=== PATIENT | male | born 2000 | race African-American/Black ===

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

== ENCOUNTER 2023-02-23 22:01 | Emergency (ER) | payer MEDICAID, SELFPAY ==
[2023-02-23 22:02] VITALS: BP 142/90; PULSE 89; RESP 18; TEMP 36.8; O2SAT 98; BMI 19.0
--- NOTE | 2023-02-23 22:28 | EX.ED.UPPERE ---
HPI History of Present Illness Chief Complaint: Upper Extremity Injury Narrative Narrative: 22-year-old male presenting with left shoulder pain. Its in the lateral aspect of his left deltoid. Patient denies any direct trauma he states it hurts worse with movement. Is better with rest. Patient states he started a new job where he has lots of lifting and he believes this is what exacerbated the pain. PFSH PFSH Home Medications acetaminophen 325 mg tablet 2 tab PO PRN PRN Pain 02/23/19 [History Last Taken Unknown] cyclobenzaprine 10 mg tablet 10 mg PO TID PRN Muscle Spasm #20 TABLETS 02/23/23 [Rx Last Taken Unknown] naproxen 500 mg tablet (Naprosyn) 500 mg PO BID PRN pain #20 tabs 02/23/23 [Rx Last Taken Unknown] Allergy/AdvReac Type Severity Reaction Status Date / Time No Known Allergies Allergy Verified 02/23/23 22:04 Family History Other Diabetes Hypertension Social History Smoking Status: Never smoker ROS ROS ED Constitutional Constitutional ED: Denies chills, fever(s) or sweats Eyes Eyes: Denies blurry vision or change in vision ENT ENT ED: Denies ear pain or sore throat Cardiovascular Cardiovascular: Denies chest pain, palpitations or racing heartbeat Respiratory/Chest Respiratory/Chest: Denies cough, dyspnea or sputum Gastrointestinal Gastrointestinal: Denies abdominal pain, constipation, diarrhea, nausea or vomiting Genitourinary Genitourinary ED: Denies dysuria, hematuria or urinary frequency Musculoskeletal Musculoskeletal: Reports other Details: Left shoulder pain ; Denies arthralgias, myalgias or neck pain Integumentary Denies abscess, Abrasions or rash Neurologic Neurologic: Denies headache(s), paresthesias or weakness Psychiatric Psychiatric: Denies anxiety, depression, suicidal ideation or suicidal thoughts Endocrine Endocrinology: Denies polydipsia or polyuria EXAM Physical Exam Const Vital Signs: 02/23/23 22:02 Temperature 98.3 F Temperature Source Temporal Pulse Rate 89 Respiratory Rate 18 Blood Pressure 142/90 H Blood Pressure Mean 107 Pulse Ox 98 Oxygen Delivery Method Room Air Positive well nourished General Appearance ED: diaphoretic HEENT Reports moist mucous membranes Eyes PERRL and EOMs intact bilaterally Chest Wall inspection of chest normal Resp normal respiratory effort Effort and Inspection: Negative for pain with movement Cardio regular rate and regular rhythm Back/Spine Cervical Spine: Negative for cervical spine tenderness Thoracic Spine / Upper Back: Negative for thoracic spinal tenderness Extremity Extremity Narrative: Tenderness to palpation left deltoid. No limitation in range of motion in flexion, extension, abduction, abduction. No bruising, cellulitic change. Neuro oriented x3 and CN's II-XII intact bilaterally Sensorium / Orientation: alert Motor Exam: strength 5/5 throughout Skin General Skin Exam: petechiae MDM MDM MDM Narrative Medical decision making narrative: 22-year-old male presenting with left shoulder pain. This is isolated to the deltoid. I do not believe he needs any imaging. Patient will be given Naprosyn and Flexeril for home. Work restrictions were given. Patient counseled on rest, ice, NSAIDs. Return precautions were discussed. Impression: 1. Left deltoid strain Discharge Plan Triage Chief Complaint: Upper Extremity Injury ED Provider: Hitesh Rhoades Dx/Rx/DC Orders Instructions: ED Shoulder Sprain Prescriptions: New naproxen [Naprosyn] 500 mg tablet 500 mg PO BID PRN (Reason: pain) Qty: 20 0RF cyclobenzaprine 10 mg tablet 10 mg PO TID PRN (Reason: Muscle Spasm) Qty: 20 0RF No Action acetaminophen 325 MG tablet 2 tab PO PRN PRN (Reason: Pain) Stand Alone Forms: ED Work / School Excuse Primary Care Provider: Sarah Young Referrals: Sarah Young MD [Primary Care Provider] - Disposition Disposition: Home, Self Care
--- NOTE | 2023-02-23 22:58 | EX.ED.UPPERE ---
HPI History of Present Illness Chief Complaint: Upper Extremity Injury PFSH PFSH Home Medications acetaminophen 325 mg tablet 2 tab PO PRN PRN Pain 02/23/19 [History Last Taken Unknown] cyclobenzaprine 10 mg tablet 10 mg PO TID PRN Muscle Spasm #20 TABLETS 02/23/23 [Rx Last Taken Unknown] naproxen 500 mg tablet (Naprosyn) 500 mg PO BID PRN pain #20 tabs 02/23/23 [Rx Last Taken Unknown] Allergy/AdvReac Type Severity Reaction Status Date / Time No Known Allergies Allergy Verified 02/23/23 22:04 Family History Other Diabetes Hypertension Social History Smoking Status: Never smoker EXAM Physical Exam Const Vital Signs: 02/23/23 22:02 Temperature 98.3 F Temperature Source Temporal Pulse Rate 89 Respiratory Rate 18 Blood Pressure 142/90 H Blood Pressure Mean 107 Pulse Ox 98 Oxygen Delivery Method Room Air MDM MDM MDM Narrative Medical decision making narrative: Patient with muscle strain to the left deltoid. I do not believe any imaging will help. Patient will be prescribed muscle relaxers and anti-inflammatories. Work restrictions were discussed. Return precautions discussed. Impression: 1. Left shoulder strain Discharge Plan Triage Chief Complaint: Upper Extremity Injury ED Provider: Hitesh Rhoades Dx/Rx/DC Orders Instructions: ED Shoulder Sprain Prescriptions: New naproxen [Naprosyn] 500 mg tablet 500 mg PO BID PRN (Reason: pain) Qty: 20 0RF cyclobenzaprine 10 mg tablet 10 mg PO TID PRN (Reason: Muscle Spasm) Qty: 20 0RF No Action acetaminophen 325 MG tablet 2 tab PO PRN PRN (Reason: Pain) Stand Alone Forms: ED Work / School Excuse Primary Care Provider: Sarah Young Referrals: Sarah Young MD [Primary Care Provider] - Disposition Disposition: Home, Self Care
== END 2023-02-23 23:01 | disposition home or self-care (01) ==
LOC: ED 22:35
PROVIDERS: Emergency Provider Student in an Organized Health Care Education/Training Program; PCP Pediatrics; Visit Provider Student in an Organized Health Care Education/Training Program
DX: S46.912A Strain of unspecified muscle, fascia and tendon at shoulder and upper arm level, left arm, initial encounter (principal); X58.XXXA Exposure to other specified factors, initial encounter
CPT/HCPCS: 99282

== ENCOUNTER 2024-06-24 05:26 | Emergency (ER) | payer MEDICAID, SELFPAY ==
[2024-06-24 05:27] VITALS: BP 141/104; PULSE 98; RESP 16; TEMP 36.6; O2SAT 98; BMI 17.4
[2024-06-24 06:27] VITALS: PULSE 69; RESP 17; O2SAT 98
[2024-06-24 06:27] LABS: Absolute Lymphocyte Count 3.18 X10^3/uL (0.83-4.51); Absolute Neutrophil Count 7.2 X10^3/uL (2.0-7.7); Basophil# 0.04 X10^3/uL; Basophil% 0.4 % (0-1); Eosinophil# 0.06 X10^3/uL; Eosinophils% 0.5 % (0-5); Hematocrit 44.8 % (40-54); Hemoglobin 15.6 g/dL (13.0-16.5); Lymphocyte # 3.18 X10^3/ul (0.83-4.51); Lymphocyte % 28.7 % (19-41); Mean Corp Hgb Conc 34.8 g/dL (32-36); Mean Corpuscular Hgb 29.2 pg (27.0-32.0); Mean Corpuscular Volume 83.7 fL (80-94); Mean Platelet Vol. 8.7 fl (6.2-12.0); Monocyte# 0.49 X10^3/uL; Monocyte% 4.4 % (0-10); NRBC Flagged by Analyzer 0 % (0-5); Neutrophil # 7.23 X10^3/uL (2.7-7.7); Neutrophil % 65.3 % (47-70); Platelet Count 291 K/mm3 (150-450); RBC Distribution Width CV 11.6 % (11.6-14.6); RBC Distribution Width SD 34.7 fl (35.1-43.9); Red Blood Count 5.35 M/mm3 (4.6-6.2); White Blood Count 11.1 K/mm3 (4.4-11.0)
[2024-06-24 06:42] LABS: Anion Gap 7 (5-15); BUN 8 mg/dL (7-18); BUN/Creat Ratio 9.3 RATIO (10-20); Calcium,Total 9.3 mg/dL (8.5-10.1); Chloride 106 mmol/L (98-107); Creatinine, Serum 0.86 mg/dL (0.70-1.30); EST Glomerular Filtration Rate 118 mL/min (>60); Est Glom Filt Rate - Afr Amer 143 mL/min (>60); Estimated Creatinine Clearance 99.73 ml/min; Glucose 96 mg/dL (74-106); Potassium 2.9 mmol/L (3.5-5.1); Sodium Level 141 mmol/L (136-145)
[2024-06-24 06:45] LABS: Alcohol, Blood (Medical)-Serum < 3.0 mg/dL
[2024-06-24 06:50] LABS: Amphetamine Urine VISTA NEGATIVE (<1000 ng/mL); Barbiturate Urine VISTA NEGATIVE (< 200 ng/mL); Benzodiazepine Urine VISTA NEGATIVE (< 200 ng/mL); Cocaine Urine VISTA NEGATIVE (< 300 ng/mL); Ecstacy Urine VISTA NEGATIVE (< 500 ng/mL); Methadone Urine VISTA NEGATIVE (< 300 ng/mL); PCP Urine VISTA NEGATIVE (< 25 ng/mL); THC Urine VISTA NEGATIVE (< 50 ng/mL); Vista UDS pH Range 6
[2024-06-24] MEDS: Potassium Chloride Oral Tablet 20 MEQ 40 MEQ PO (08:15)
--- NOTE | 2024-06-24 08:22 | EDS_ITS ---
HPI History of Present Illness Chief Complaint: Mental Health Informant: patient Narrative Narrative: Patient is a 23-year-old male with past medical history of anxiety and depression. He states that roughly 2 weeks ago he broke up with his girlfriend and then began dating another woman but after going well for a few days it did a complete flip and ended badly. He also states he has had a hard time finding a job and has been having to live on friends couches. He states that the combination of these life events has worsened his depression and he is now having thoughts of self-harm. He denies any previous suicide attempt or psychiatric admission. He denies any plan. However with his worsening symptoms he presents for evaluation [facility] Medical History Depressed Anxiety Home Medications ?Medication ?Instructions ?Recorded ?Last Taken ?Type NK 06/24/24 Unknown History Allergy/AdvReac Type Severity Reaction Status Date / Time No Known Allergies Allergy Verified 06/24/24 05:28 Family History Other Diabetes Hypertension Social History Smoking Status: Current every day smoker tobacco type: e-cigarettes ROS ROS ED Constitutional Constitutional ED: Denies chills or fever(s) ENT ENT ED: Denies sore throat Cardiovascular Cardiovascular: Denies chest pain Respiratory/Chest Respiratory/Chest: Denies cough or dyspnea Gastrointestinal Gastrointestinal: Denies abdominal pain, diarrhea, nausea or vomiting Genitourinary Genitourinary ED: Denies dysuria Musculoskeletal Musculoskeletal: Denies myalgias Integumentary Denies rash Neurologic Neurologic: Denies headache(s) Psychiatric Psychiatric: Reports anxiety, depression and suicidal thoughts Hematologic/Lymphatic Hematologic/Lymphatic: Denies easy bleeding or easy bruising EXAM Physical Exam Const Vital Signs: 06/24/24 05:27 06/24/24 06:27 Temperature 97.8 F Temperature Source Temporal Pulse Rate 98 69 Respiratory Rate 16 17 Blood Pressure 141/104 H Blood Pressure Mean 116 Pulse Ox 98 98 Oxygen Delivery Method Room Air Positive well nourished and well developed General Appearance ED: well developed; Negative for pallor HEENT HEENT Narrative: Normocephalic atraumatic Eyes PERRL and EOMs intact bilaterally General Eye ED: Negative for scleral icterus Neck supple Resp normal respiratory effort and clear to auscultation bilaterally Cardio regular rate and regular rhythm GI normal to inspection, nondistended, normoactive bowel sounds, non-tender, non- distended and no masses Auscultation: normoactive bowel sounds Palpation: soft Extremity normal to inspection Neuro oriented x3, CN's II-XII intact bilaterally and no sensory deficits noted Sensorium / Orientation: alert Motor Exam: strength 5/5 throughout Psych Mood & Affect: depressed Skin no rashes or lesions noted and no wounds General Skin Exam: Negative for jaundice or pallor MDM MDM MDM Narrative Medical decision making narrative: Patient arrived to the ER hypertensive but otherwise with stable vitals. He reported longstanding anxiety and depression with recent stressors from everyday life causing a worsening of his depression. He has intermittent thoughts of self-harm but is overall low risk as he has never attempted self-harm and never required hospitalization. Also he has no plan at this time. However with his report of worsening symptoms and intermittent thoughts of suicide a psychiatric screening exam was performed. Lab work revealed no clinically significant findings just mild hypokalemia with a potassium of 2.9 which was replaced orally. He was therefore medically cleared and crisis center evaluated the patient. At this time crisis centers recommendation is still pending and therefore he will be signed out to the day physician Dr. Burger pending their recommendation. History & Record Review Discussion w/independent historian: Patient Lab Data Attestation: I reviewed the patient's lab results. Labs: Laboratory Results - last 24 hr 06/24/24 06:10 WBC 11.1 H RBC 5.35 Hgb 15.6 Hct 44.8 MCV 83.7 MCH 29.2 MCHC 34.8 RDW Std Deviation 34.7 L RDW Coeff of Mamadou 11.6 Plt Count 291 MPV 8.7 Immature Gran % (Auto) 0.700 Neut % (Auto) 65.3 Lymph % (Auto) 28.7 [place] % (Auto) 4.4 Eos % (Auto) 0.5 Baso % (Auto) 0.4 Absolute Neuts (auto) 7.2 Absolute Lymphs (auto) 3.18 Nucleated RBC % 0 Sodium 141 Potassium 2.9 L Chloride 106 Carbon Dioxide 28.0 Anion Gap 7 BUN 8 Creatinine 0.86 Estim Creat Clear Calc 99.73 Est GFR (MDRD) Af Amer 143 Est GFR (MDRD) Non-Af 118 BUN/Creatinine Ratio 9.3 L Glucose 96 Calcium 9.3 Urine Opiates Screen NEGATIVE Urine Methadone Screen NEGATIVE Ur Barbiturates Screen NEGATIVE Ur Phencyclidine Scrn NEGATIVE Ur Amphetamines Screen NEGATIVE MDMA (Ecstasy) Screen NEGATIVE U Benzodiazepines Scrn NEGATIVE Urine Cocaine Screen NEGATIVE U Cannabinoids Screen NEGATIVE Ur Drug Screen Comment Ethyl Alcohol < 3.0 Discharge Plan Triage Chief Complaint: Mental Health ED Provider: Edison Hays Dx/Rx/DC Orders Clinical Impression: Anxiety and depression, Hypokalemia Prescriptions: No Action NK Primary Care Provider: Sarah Young Referrals: Sarah Young MD [Primary Care Provider] - Print Language: Bulgarian
[2024-06-24 10:31] VITALS: BP 130/87; PULSE 69; RESP 17; TEMP 36.6; O2SAT 98
== END 2024-06-24 10:32 | disposition home or self-care (01) ==
PROVIDERS: Emergency Provider Emergency Medicine; PCP Pediatrics; Visit Provider Emergency Medicine
DX: F41.9 Anxiety disorder, unspecified (principal); E87.6 Hypokalemia; F32.A Depression, unspecified; F17.290 Nicotine dependence, other tobacco product, uncomplicated
CPT/HCPCS: 36415; 80048; 80307; 82077; 85025; 99282